=== PATIENT | female | born 2000 | race Caucasian/White ===

== ENCOUNTER 2020-06-04 14:17 | Emergency (ER) | payer MEDICAID, SELFPAY ==
[2020-06-04 14:38] VITALS: BP 133/79; PULSE 80; RESP 16; TEMP 36.2; O2SAT 98; BMI 17.5
--- NOTE | 2020-06-04 15:12 | ED.GENADULT ---
HPI - General Adult General Chief complaint: General Medical Stated complaint: left breast pain Time Seen by Provider: 06/04/20 15:02 Related Data Allergies Allergy/AdvReac Type Severity Reaction Status Date / Time shellfish derived Allergy Swelling Verified 06/04/20 14:51 PMFSH Past Medical History Medical History Costochondritis Social History Social History Smoked in Last 30 Days: No Use of substances other than those prescribed or required for medical reasons: Yes Substance Use Type: Marijuana Advance Directives: No Advance Directives Information Provided: Yes Physical Exam Vital Signs and I&O and Narrative: Vital Signs and I&O: Vital Signs Temp 97.1 F 06/04/20 14:38 Pulse 80 06/04/20 14:38 Resp 16 06/04/20 14:38 BP 133/79 06/04/20 14:38 Pulse Ox 98 06/04/20 14:38 Intake & Output 06/03/20 06/04/20 06/04/20 18:59 06:59 18:59 Weight 45 kg Body Mass Index 17.5 Discharge Plan Discharge Clinical Impression: Benign breast cyst in female Qualifiers: Laterality: left Qualified Code(s): N60.02 - Solitary cyst of left breast Patient Disposition: Home, Self-Care Instructions: Cyst (ED) Additional Instructions: [facility] [phone] Heat to the area Motrin or tylenol for pain as needed Referrals: Ansley Doyle MD [Primary Care Provider] - 5 days Stand Alone Forms: Work/School Release
--- NOTE | 2020-06-04 15:12 | ED.GENADULT ---
HPI - General Adult General Chief complaint: General Medical Stated complaint: left breast pain Time Seen by Provider: 06/04/20 15:02 Source: patient Mode of arrival: ambulatory Limitations: no limitations History of Present Illness HPI narrative: left breast pain times several days. Seen by gynecology. Told likely cystic and to follow-up in a few weeks with them. Patient tells me she has had persistent pain. No fevers, chills, redness, nipple drainage or discharge. Location: chest ( Left breast) Radiation: non-radiation Severity: mild Quality: sharp Pain Consistency: constant Relieving factors: immobilization Exacerbating factors: movement and other ( palpation) Associated symptoms: denies other symptoms Related Data Allergies Allergy/AdvReac Type Severity Reaction Status Date / Time shellfish derived Allergy Swelling Verified 06/04/20 14:51 Review of Systems Review of Systems: Yes all other systems are reviewed and are negative Constitutional: Constitutional: Reports no additional constitutional complaints, Denies body ache(s), Denies chills, Denies fever(s), Denies headache(s) and Denies weakness Eyes: Eyes: Reports no additional eye complaints and Denies change in vision ENT: Reports system reviewed and no additional complaints, except as documented, Denies dizziness, Denies headache(s), Denies nasal congestion, Denies nasal discharge and Denies neck pain Cardiovascular: Cardiovascular: Reports no additional cardiovascular complaints, Denies chest pain, Denies leg edema and Denies dyspnea Respiratory: Respiratory: Reports no additional respiratory complaints, Denies cough and Denies dyspnea Gastrointestinal: Gastrointestinal: Reports no additional gastrointestinal complaints, Denies abdominal pain, Denies diarrhea, Denies nausea and Denies vomiting Genitourinary: Genitourinary: Reports no additional female genitourinary complaints and Denies urinary incontinence Musculoskeletal: Musculoskeletal: Reports no additional musculoskeletal complaints, Denies back pain, Denies arthralgias, Denies joint swelling, Denies neck pain, Denies numbness and Denies tingling Integumentary/Breasts: Skin/Breast: Reports system reviewed and no additional complaints, except as docu, Denies breast skin changes, Reports breast pain, Denies breast mass, Denies change in breast shape and Denies rash Neurologic: Reports system reviewed and no additional complaints, except as documented, Denies Abnormal speech present, Denies dizziness, Denies headache(s), Denies numbness, Denies tingling and Denies weakness PMF Past Medical History Attestation statement: The following information was validated with the patient. Source: obtained from family and nursing notes reviewed Medical History Costochondritis Social History Social History Smoked in Last 30 Days: No Use of substances other than those prescribed or required for medical reasons: Yes Substance Use Type: Marijuana Advance Directives: No Advance Directives Information Provided: Yes Physical Exam Vital Signs and I&O and Narrative: Vital Signs and I&O: Vital Signs Temp 97.1 F 06/04/20 14:38 Pulse 80 06/04/20 14:38 Resp 16 06/04/20 14:38 BP 133/79 06/04/20 14:38 Pulse Ox 98 06/04/20 14:38 Intake & Output 06/03/20 06/04/20 06/04/20 18:59 06:59 18:59 Weight 45 kg Body Mass Index 17.5 Const: General: cooperative, healthy appearing, comfortable and no acute distress Orientation/consciousness: patient oriented x3 Limitations: no limitations HENMT: Head: Yes normal to inspection Ears: hearing grossly normal bilaterally General nose exam: Normal external nose present Face and sinus: Yes normal facial exam Mouth: Normal oral and palatal mucosa present Throat: Yes posterior oropharynx normal Eyes: General: appearance normal, both eyes and all related structures Pupils: Equal, round and reactive pupils present Neck: Neck: Yes normal visual inspection Chest: Other: Firm, tender lump noted at the breast. No surrounding erythema, discharge or dimpling of the skin. No axillary lymphadenopathy. Chest palpation & inspection: normal inspection of the chest Breast/axilla inspection: normal inspection of the breasts and normal inspection of the axillae Breast/axilla palpation: normal palpation of the breasts ( firm lump noted at the 2 to 3 o'clock position. Areola not involved.), normal palpation of the axillae and no axillary lymphadenopathy Resp: Effort & Inspection: normal respiratory effort Auscultation: clear to auscultation bilaterally Cardio: Rate: regular rate Rhythm: regular rhythm Peripheral pulses: Peripheral pulses 2+ throughout GI: Inspection: Yes normal to inspection Palpation (GI): Soft to palpation and nontender Auscultation: normal bowel sounds Back/Spine/Pelvis: Thoracic/Lumbar Spine: thoracic and lumbar spine normal to inspection Skin: General skin exam: no rashes or lesions noted Neuro: General: patient oriented x3, no focal motor deficits and normal sensation to monofilament Cranial nerves: Yes Equal, round and reactive pupils present Cognition (Neuro): normal cognition Speech: No Abnormal speech present Gait exam (Neuro): Normal gait present Motor exam (neuro): 5/5 motor strength present throughout Extrem: General: Yes normal to inspection Medical Decision Making MDM Narrative Medical decision making narrative: Left-sided breast lump Times several days with no signs or symptoms of breast abscess. More cystic on nature. Tender so less likely malignancy. Discussed close follow-up with Gynecology[facility]. Reviewed worrisome signs and symptoms and when to return to the emergency department. Comfortable with discharge home. Discharge Plan Discharge Clinical Impression: Benign breast cyst in female Qualifiers: Laterality: left Qualified Code(s): N60.02 - Solitary cyst of left breast Patient Disposition: Home, Self-Care Instructions: Cyst (ED) Additional Instructions: [facility] tomorrow [phone] Heat to the area Motrin or tylenol for pain as needed Referrals: Ansley Doyle MD [Primary Care Provider] - 5 days Stand Alone Forms: Work/School Release
== END 2020-06-04 16:43 | disposition home or self-care (01) ==
PROVIDERS: Emergency Provider Emergency Medicine; PCP Family Medicine
DX: N60.02 Solitary cyst of left breast (principal)
CPT/HCPCS: 99283; 99284

== ENCOUNTER 2025-01-22 09:48 | Outpatient (AMB) | payer BC, SELFPAY ==
[2025-01-22 09:55] VITALS: BP 110/70; PULSE 87; TEMP 36.6; O2SAT 100
--- NOTE | 2025-01-22 09:55 | AM.OFFWIN_ITS ---
Intake Vital Signs 01/22/25 09:55 Height 5 ft 3 in BP 110/70 Blood Pressure Location Lt brachial Position Sitting Pulse 87 Pulse Source Pulse Oximeter Temp 97.9 F Temp Source Oral Pulse Oximetry (%) 100 Oxygen Delivery Method Room Air Intake Visit Reasons: PET SITTING Trouble breathing Patient Tobacco Use Status: Never used Tobacco Accompanied by: Self / Same As Patient Allergies shellfish derived Allergy (Verified 01/22/25 09:55) Swelling Do you need a note to return to daycare/school/sports/work: Yes HPI HPI Comments History of Present Illness Details History - The patient is a 24-year-old female pr esenting with acute respiratory distress and coughing. - She experienced a sore throat starting a week ago, which progressed into a cough treated with DayQuil. - Symptoms escalated, leading to difficu lty breathing, severe coughing, change in phlegm color from yellow to du, and pressure sensations in the eyes and ears. - Asthma exacerbation history revealed h ospital visits as well as need for inhalers, breathing treatments, and oral steroids. - She has no inhaler or nebulizer at [facility] and has not been on daily asthma maintenance therapy. - Denied significant congestion, ear preston n, sinus issues, headache, but experienced shakiness, numbness, and felt increased pressure due to intense coughing. - Has had seasonal allergies treated wit h antihistamines. - Lack of a consistent primary care prov ider and no previous pulmonary function assessment. Physical Exam General: Cooperative, healthy appearing, comfortable and no acute distress Orientation/consciousness: Patient oriented x3 Limitations: No limitations Head: Normal to inspection Ears: Hearing grossly normal bilaterally, external ears normal and TM's normal bilaterally Nose: Normal external nose present, Normal nares present and No nasal discharge present Face and sinus: Normal facial exam and Yes sinuses nontender Mouth: Normal oral and palatal mucosa present and moist mucous membranes Throat: Yes tonsils normal, Yes uvula midline. Posterior oropharynx erythema Eyes: Appearance normal, both eyes and all related structures Neck: Normal visual inspection Respiratory: Clear to auscultation bilaterally. Normal respiratory effort, able to speak in complete sentences, Actively coughing, no respiratory distress, not tachypneic, no tripod positioning and no use of accessory muscles Cardiovascular: Regular rate and rhythm. Normal S1 and S2 Skin: No rashes or lesions noted Neuro: Patient oriented x3 Extremities: Normal to inspection and Yes no clubbing, cyanosis or edema PFSH Medical History (Updated 01/22/25 @ 10:09 by Becky Reyes PA-C) Costochondritis Social History (System 06/09/23 @ 12:09 by Becky Dobson) Patient Tobacco Use Status: Never used Tobacco Substance Use Type: Marijuana Review of Systems Const All systems reviewed & are unremarkable except as noted in HPI and below Physical Exam Vital Signs: Last Vital Signs Temp 97.9 F 01/22/25 09:55 Pulse 87 01/22/25 09:55 BP 110/70 01/22/25 09:55 Pulse Ox 100 01/22/25 09:55 Oxygen Delivery Method Room Air 01/22/25 09:55 Office Procedures Nebulizer Treatment Nebulizer Treatment 65103-Mbjryjlkp/MDI RX initial, or Nebulizer Subsequent Treatment Office Meds ipratropium 0.5 mg-albuterol 3 mg (2.5 mg base)/3 mL nebulization soln Performing Provider: Becky Reyes PA-C Performing Location: [facility] Administered by: Becky Reyes PA-C on 01/22/25 10:14 Dose Route Admin Location Dispensed Lot Number Expiration Date [facility] [employer] 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 The patient's treatment plan addressed the acute asthma exacerbation and possible bacterial infection. A nebulizer treatment was administered in office for immediate relief, and a rescue inhaler was prescribed for worsening symptoms. A Z-Parish was prescribed as it may offer additional benefits owing to its anti-inflammatory property, alongside a six-day steroid taper for inflammation. The patient was encouraged to inquire about long-term asthma management for which a maintenance inhaler could be beneficial. Recommendations included taking doses in the morning to prevent sleep issues and ensuring rest. Prescription information was sent to a local pharmacy for completion. Patient was informed and verbally consented to the use of an ambient scribe for clinic note documentation during this visit (2) Asthma exacerbation, mild: Code(s): J45.901 - Unspecified asthma with (acute) exacerbation Plan: as above Orders: Orders AMB Nebulizer Treatment Today J22 - Unspecified acute lower respiratory infection, J45.901 - Unspecified asthma with (acute) exacerbation Medications: New methylprednisolone PO PER PKG DIR for 6 days 21 ea 0RF albuterol sulfate 90 mcg/actuation 2 puffs inhalation Q6H PRN 8.5 grams 0RF shortness of breath or wheezing or cough azithromycin For 250 mg dose pack: take 500 mg today (day 1), then 250 mg for 4 days (days 2-5) PO 6 tabs 0RF Coding Level of Care Code Est Pt Level 4 (32907) Diagnoses Lower respiratory infection (e.g., bronchitis, pneumonia, pneumonitis, pulmonitis) J22 Asthma exacerbation, mild J45.901 CPT Codes Nebulizer Treatment - Nebulizer Treatment, initial or subsequent: 69837- Nebulizer/MDI RX initial, or Nebulizer Subsequent Treatment ([id number])
--- OUTSIDE RECORDS SUMMARY | 2025-01-22 10:24 | XMS_ITS | Data Portability ---
Author Organization [facility], [address] Address [address] [place] [address] Assessment No assessment recorded. Plan of Treatment Reminders Order Date Submit Date Provider Last Modified By Organization Details Last Modified Time Details Appointments None recorded. Lab rapid flu (A+B) 2023 024 [email or web address] 20999[facility], [address] [place] [address], [phone], 4 14:02:39 SARS CoV 2 (COVID-19) Ag, QL, IA, upper respiratory specimen 2023 024 [email or web address] _[facility], [address] [place] [address], [phone], 4 14:02:49 Referral None recorded. Procedures None recorded. Surgeries None recorded. Imaging None recorded. Medication Orders None recorded. Patient TargetsNo targets recorded. Patient Instructions Encounter Date Encounter Id Patient Instructions Last Modified By Organization Details Last Modified Time 10/13/2023 [id number] Come into the Urgent Care tomorrow for Covid and Flu testing - for guidance on additional treatment strategies. [email or web address] Not available 10/13/2023 17:46:12 10/14/2023 [id number] upper respirator y infection (cold): care instructions [email or web address] Not available 10/14/2023 13:54:10 Reason for Referral None Reported. Results Created Date Observation Date Name Description Value Unit Range Abnormal Flag Note LastModifiedBy Organization Detail LastModifiedTime 10/14/19 24 10/14/2023 SARS CoV 2 (COVI D-19) Ag, QL, IA, upper respi rator y speci men Unknown Analyte negati ve Not Available _adryan linton [address] [place], [address], 10/14/2023 13:40:50 10/14/19 24 10/14/2023 SARS CoV 2 (COVI D-19) Ag, QL, IA, upper respi rator y speci men Unknown Analyte yes Not Available 2099_ radha [address] [place], [address], 10/14/2023 13:40:50 10/14/19 24 10/14/2023 rapid flu (A+B) Unknown Analyte negati ve Not Available adryan [address] [place], [address], 10/14/2023 13:40:49 10/14/19 24 10/14/2023 rapid flu (A+B) Unknown Analyte negati ve Not Available [facility] [address] [place], [address], 10/14/2023 13:40:49 10/14/19 24 10/14/2023 rapid flu (A+B) Unknown Analyte yes Not Available [address] [place] [address] [place], [address], 10/14/2023 13:40:49 Result Notes None recorded. Problems No Known Problems Procedures Surgical History Date Name Laterality Status Provider Name and Address Organization Details Recorded Time 4 Virtual Visit completed SO HOLLOWAY MD [address] [place] [address] [place], [address], [place] - [facility] 10/13/2023 17:39:35 Imaging Results None recorded. Procedure Notes None recorded. Medical Equipment None Reported. Vitals Date Recorded Body temperature Oxygen saturation Oxygen saturation in Arterial blood by Pulse oximetry Heart rate Body height Body mass index (BMI) Body weight Systolic And Diastolic Provider Name and Address Organization Details Last Updated DateTime 4 99.5 [degF] 100 % 100 % 91 /min 162.56 cm 18.9 kg/m2 47635.1 6 g 115/75 mm[Hg] SHIRA Batista , [place], [address], [place] - [facility] 4 13:36:49 Social History None recorded. Functional Status None recorded. Mental Status None recorded. Family History Nothing Reported. Medical History No medical history recorded. Gynecological History Statement/Question Response Is there any chance of ? No Obstetrics History GPAL:G 0 P 0 0 0 0 Immunizations Vaccine Type Date Status Note Provider Nam e and Address Organization Details Recorded Time COVID-19, mRNA, LNP-S, PF, 30 mcg/0.3 mL dose 1 completed SHIRA Batista, [place], [address], [place] - [facility] 10/14/2023 13:37:24 COVID-19, mRNA, LNP-S, PF, 30 mcg/0.3 mL dose 1 completed SHIRA Batista, [place], [address], [place] - [facility] 10/14/2023 13:37:24 Td (adult), 2 Lf tetanus toxoid, preservative free, adsorbed 2 completed SHIRA Batista, [place], [address], [place] - [facility] 10/14/2023 13:37:24 meningococcal MCV4P 5 completed SHIRA Batista, [place], [address], [place] - [facility] 10/14/2023 13:37:24 Influenza, split virus, quadrivalent, PF 9 completed SHIRA Batista, [place], [address], [place] - [facility] 10/14/2023 13:37:24 Influenza, split virus, quadrivalent, PF 5 completed SHIRA Batista [address] [place], [address], [place] - [facility] 10/14/2023 13:37:24 Influenza, split virus, quadrivalent, PF 6 completed SHIRA Batista [address] [place], [address], [place] - [facility] 10/14/2023 13:37:24 Past Encounters Encounter ID Performer Location Encounter Start Date Encounter Closed Date Diagnosis/Indication Diagnosis SNOMED-CT Code Diagnosis ICD10 Code Diagnosis Note [id number] [facility] [address] [place] [phone] 08/23/2020 18:25:49 08/23/2020 20:00:46 [id number] [facility] [address] [place] [address] 06/16/2022 18:41:59 06/16/2022 20:28:44 [id number] [facility] [address] [place] [address] 06/27/2022 18:13:50 06/27/2022 19:31:37 [id number] [facility] [address] [place] [id number] 04/29/2018 14:52:25 04/29/2018 15:48:34 [id number] [place] [address] [address] [place] [address] 10/13/2023 17:15:36 10/13/2023 18:02:06 Viral upper respiratory tract infection 767016897 J06.9 CoughBlack Elderberry Syrup:1-2 tsp 2-3 times a day for 5 days as needed for coughing.S ambucol Black Elderberry Original Syrup (available at [employer] )Dee Herbs Black Elderberry Syrup, 5.4-Ounce Bottle (available at [employer] or [employer]) Use a cool mist humidifier in the room that you sleep to add moisture to the air, which should soothe the airways and help loosen any mucus that may be present. Sore throatClea r liquids for comfortFre sh Sridhar Root Tea-Cut up fresh sridhar root and boil it till fragrant. drink the liquid as a tea. Can add Honey to taste. Also For Sore Throat:Thr oat Comfort Tea (by [employer])Thro at Coat Tea ( by [employer] ) Clear broth soup: Vegetable, Chicken or Beef as tolerated. Salt Water GarglesMix 1 teaspoonfu l of salt in a glass of warm water. Gargle and spit out the salt water mixture one mouthful at a time until the glass is empty. Repeat 4 times daily. [id number] SHIRA Batista [address] [address] [address] 10/14/2023 13:24:57 10/14/2023 14:05:34 Upper respiratory infection 66151598 J06.9 Patient presented with symptoms of upper respirator y infection. Advised to drink plenty of fluids, run a cool-mist humidifier in room at night, gargle salt water for sore throat, and get plenty of rest. Patient should avoid over-exert ion and reduce exposure to irritants such as smoke, cold, dry air, and dust.Treat ment currently involves symptomati c relief. Nasal sprays like nasonex and flonase (or generic) as well as neti pot to help clear sinuses Patient may take acetaminop hen or ibuprofen as directed to reduce fever and body aches.Anti histamine and decongesta nt usage was discussed and recommenda tions made.Felisa bennett understood these instructio ns and will follow up in the office in 10 days to 2 weeks if symptoms not improving. ER if any shortness of breath/reggie st pain or worsening. Thank you for using [employer] today, please feel free to contact our office if you have any questions or concerns. Health Concerns Section Related Observation LastModified by Organization Detai ls LastModified Time None Recorded Concern Status LastModified by Organization Details LastModified Time None Recorded Advance Directives Directive None Recorded Payers Insurance Date Sequence Insurance Name Policy Number Policy Zamorano Covered Member ID Zamorano Member ID Guarantor Name 10/13/2023 1 [place] [id number] Jennie Liu [id number] Jennie Liu 10/13/2023 1 [place] DOS PRIOR TO 2022 - LOCATED WITHIN [facility] (MEDICAID) Jennie Liu [id number] Jennie Liu Notes Date Note Type Note Provider Name and Address Organization Details Recorded Time 10/13/2023 text/html 23 yo female wit h a 4 day hx of chills, sore throat, stuffy nose, and am sweats, Known sick contacts = Grandmother had a sever cold last week. Pt denies n/v/d/rash/headach e/earache/abdomena l pain, or other sxs. SO HOLLOWAY MD [address] [place], [address], [place] - [facility] 10/13/2023 17:46:51 10/14/2023 text/html 23 y/o female wi th 5 days of cough, congestion, fevers, fatigue.Taking OTC meds with some relief. Lives with grandparents, they have also been ill. SHIRA Batista [address] [place], [address], [place] - [facility] 10/14/2023 14:03:07 OBGyn Episode No OBEpisode recorded.
== END 2025-01-22 10:30 | disposition home or self-care (01) ==
PROVIDERS: PCP Family Medicine; Visit Provider Physician Assistant
DX: J22 Unspecified acute lower respiratory infection (principal); J45.901 Unspecified asthma with (acute) exacerbation

== ENCOUNTER → 2025-01-22 09:48 | Outpatient (BNVA) | payer BC, SELFPAY | PROVIDERS: PCP Family Medicine; Visit Provider Physician Assistant | DX: J22 Unspecified acute lower respiratory infection (principal); J45.901 Unspecified asthma with (acute) exacerbation | CPT/HCPCS: 94640 ==

== ENCOUNTER 2025-06-04 15:48 | Outpatient (AMB) | payer BC, SELFPAY ==
[2025-06-04 15:50] VITALS: BP 112/62; PULSE 90; TEMP 36.8; O2SAT 99; BMI 19.3
--- NOTE | 2025-06-04 15:50 | MHC.OFFWIV ---
Intake Vital Signs 06/04/25 15:50 Height 5 ft 3 in Weight 109 lb BMI 19.3 BP 112/62 Blood Pressure Location Lt brachial Position Sitting Pulse 90 Pulse Source Pulse Oximeter Temp 98.3 F Temp Source Oral Pulse Oximetry (%) 99 Oxygen Delivery Method Room Air Intake Visit Reasons: ep possible upper respiratory infection Intake Note: pt presents with sinus congestion, head pressure, throat pain Patient Tobacco Use Status: Never used Tobacco Allergies shellfish derived Allergy (Verified 06/04/25 15:54) Swelling Do you need a note to return to daycare/school/sports/work: Yes HPI HPI Comments History of Present Illness Details History - The patient is a 25-year-old female presenting with flu-like symptoms, including congestion, cough, and headache, without fever for a few days. - Symptoms began recently, with the patient waking up in a pool of sweat and feeling unwell. - She has taken DayQuil without improvement. - Reports mild shortness of breath upon exertion, particularly when moving around outside the house. - No official diagnosis of asthma, but previous similar episodes have occurred. Does not have a PCP. - The patient is prone to sinus and chest issues, with exacerbations following colds. - No primary care physician currently, but plans to establish care with a new provider. - Sinus pain reported, with facial, nasal, and ocular discomfort. - Self-administered facial massage provided slight relief. Physical Exam General: Cooperative, healthy appearing, comfortable and no acute distress Orientation/consciousness: Patient oriented x3 Limitations: No limitations Head: Normal to inspection Ears: Hearing grossly normal bilaterally, external ears normal and TM's normal bilaterally Nose: Normal external nose present, Normal nares present and No nasal discharge present Face and sinus: Normal facial exam and Sinuses tender, especially in the maxillary area Mouth: Normal oral and palatal mucosa present and moist mucous membranes Throat: Yes tonsils normal, Yes uvula midline. Posterior oropharynx erythema, no exudates Eyes: Appearance normal, both eyes and all related structures Neck: Normal visual inspection, full ROM Respiratory: Clear to auscultation bilaterally. Normal respiratory effort, able to speak in complete sentences, Actively coughing, no respiratory distress, not tachypneic, no tripod positioning and no use of accessory muscles Cardiovascular: Regular rate and rhythm. Normal S1 and S2 Skin: No rashes or lesions noted Neuro: Patient oriented x3 Extremities: Normal to inspection and Yes no clubbing, cyanosis or edema Review of Systems - General: Reports flu-like symptoms without fever - Respiratory: Reports congestion and cough, mild dyspnea on exertion - ENT: Reports headache, facial pain, nasal congestion, and ocular discomfort All systems reviewed and are unremarkable except as noted in [facility]PI [facility] Costochondritis Social History Patient Tobacco Use Status: Never used Tobacco Substance Use Type: Marijuana Physical Exam Vital Signs: Last Vital Signs Temp 98.3 F 06/04/25 15:50 Pulse 90 06/04/25 15:50 BP 112/62 06/04/25 15:50 Pulse Ox 99 06/04/25 15:50 Oxygen Delivery Method Room Air 06/04/25 15:50 BMI result Body Mass Index 19.3 Assessment & Plan Assessment & Plan (1) Sinusitis, acute: Code(s): J01.90 - Acute sinusitis, unspecified Qualifiers: Sinusitis location: maxillary Recurrence: non-recurrent Qualified Code(s): J01.00 - Acute maxillary sinusitis, unspecified Plan: Plan Patient was informed and verbally consented to the use of an ambient scribe for clinic note documentation during this visit. 1. Upper Respiratory Tract Infection - VSS, pt well appearing and PE remarkable for sinus tenderness - Rapid strep negative - Prescribed a Solumedrol Dosepak for sinus inflammation and symptom relief. - Recommended [id number] Sudafed for congestion relief. - Advised to continue using albuterol inhaler as needed for dyspnea. - Viral panel test conducted to identify specific viral infection. 2. Possible Mild Asthma Exacerbation - Suggested obtaining PCP, gave info, to get pulmonary function testing for asthma diagnosis and management. Has albuterol inhaler to use PRN, no wheezing on auscultation and O2 sat WNL Orders: Orders Resp Pathogen Panel - [facility] Today J06.9 - Acute upper respiratory infection, unspecified Medications: New methylprednisolone PO PER PKG DIR for 6 days 21 ea 0RF benzonatate 200 mg PO BEDTIME PRN 10 caps 0RF cough Coding Level of Care Code New Pt Level 3 (00659) Diagnoses Acute non-recurrent maxillary sinusitis J01.00 Sinusitis location: maxillary Recurrence: non-recurrent
--- OUTSIDE RECORDS SUMMARY | 2025-06-04 18:45 | XMS_ITS | Encounter Summary ---
Author Organization [facility] Address [address] [facility] [address] [place] [id number] Phone Care Team Providers Care Plant Guard Name Role Phone Ansley Doyle MD Primary Care Provider [phone] Ansley Doyle MD Unavailable [phone] Unknown, Unknown Primary Care Provider Ariadne evans Encounter Details Date Type Department Care Team (Late st Contact Info) Description 03/18/2022 Procedure Pass [facility], [facility] [address] [place] [address] Social History Tobacco Use Types Packs/Day Years Used Date Smoking Tobacco: Never Smokeless Tobacco: Never Alcohol Use Standard Drinks/Week Comments Yes 0 (1 standard drink = 0.6 oz pur e alcohol) Child or Family Care Answer Date Record ed Do you have problems with on e of the following making it difficult for you to work, study, or receive health care? No 03/18/2022 Education Answer Date Recorded Are you interested in help w ith more adult education (for example, completing high school, GED, job training, learning the [place] language, technical skills, or developing parenting skills)? Yes 03/18/2022 Food Answer Date Recorded Within the past 6 months we worried whether our food would run out before we got money to buy more. Never True 03/18/2022 Within the past 6 months the food we bought just didn't last and we didn't have enough money to get more. Never True Residential Stability Answer Date Recor ded What is your housing situation today? I have garret sing 03/18/2022 How many times have you move d in the past 12 months? Zero (I did not move) 03/18/2022 Paying for Meds Answer Date Recorded Do you have trouble paying for medicines? No 03/18/2022 Paying Utility Bills Answer Date Record ed Do you have trouble paying y our heating or electricity bill? I choose not to answer 03/18/2022 Transportation Answer Date Recorded Has the lack of transportati on kept you from medical appointments or from getting medications? No 03/18/2022 Unemployment Answer Date Recorded Are you currently unemployed or working on a part-time or temporary basis, and looking for work? No 03/18/2022 Comments No Sex and Gender Information Value Date Recorded Sex Assigned at Female 06/19/2019 12:32 PM EDT Legal Sex Female 2:30 PM EST Gender Identity Female 06/19/2019 12:32 PM EDT Sexual Orientation Bisexual 10/22/2019 12 :52 AM EST Occupation Industry Job Start Date Job End Date [employer] Not on file Not on file Not on file documented as of this encounter Plan of Treatment Not on file documented as of this encounter Visit Diagnoses Not on filedocumented in this encounter Additional Health Concerns Assessment Noted Time PHQ-2 Depression Total Score: 0 03/18/20 22 1:39 PM EDT documented as of this encounter Care Teams Plant Guard Relationship Specialty Start Date End Date Ansley Doyle MD [email or web address] PCP - General Family Medicine 07/23/19 12/01/23 Unknown, Unknown, PCP - General 12/02/23 Ansley Doyle MD [address] [place] [address] [email or web address] Insurance Assigned Provider 08/04/19 documented as of this encounter Additional Source Comments The information contained in this document represents components of the legal health record. It is not the complete legal health record.[facility]
--- OUTSIDE RECORDS SUMMARY | 2025-06-04 18:45 | XMS_ITS | Clinical Summary ---
Author Organization [facility] Address [address] [address] Phone Care Team Providers Care Cupola Man Name Role Phone Unknown, Unknown Primary Care Provider Ariadne evans Allergies Active Allergy Reactions Criticality Noted Date Comments Shellfish Containing Products Shortness Of Breath High 11/16/2017 Medications PROAIR HFA 90 mcg/actuation inhaler INHALE 2 PUFFS BY MOUTH FOUR TIMES DAILY NEEDED FOR WHEEZING 1 Active cholecalciferol (VITAMIN D3) 5,000 unit capsuleIndications :Vitamin D insufficiency Take 1 capsule (5,000 Units total) by mouth daily. 90 capsule 1 2 Active levonorgestrel and ethinyl estradiol (LOSEASONIQUE) 0.1-0.02 mg (84) 0.10 mg (7) oral 3MPkIndications:Br eakthrough bleeding on control pills Take 1 tablet by mouth daily. 84 tablet 4 3 Active Active Problems Problem Noted Date Diagnosed Date Concussion 03/18/2022 ARTURO positive 02/24/2022 Assessment & Plan (03/09/2022 10:46 PM EDT): I have explained to Fidelina that low positive ARTURO in itself does not make any diagnoses however puts her at an increased risk for developing any systemic rheumatic diseases associated with positive ARTURO such as systemic lupus erythematosus, Sjogren's syndrome, mixed connective tissue disease, scleroderma, polymyositis, dermatomyositis, vasculitis etc. at some point in the future. Due to diffuse arthralgias myalgias, dryness in her eyes and mouth I took the liberty of additional tests to make sure that there are no immunologic abnormalities requiring further follow-up. Other headache syndrome 02/24/2022 Assessment & Plan (03/09/2022 10:49 PM EDT): Proper hydration, daily relaxation/meditation, sleep hygiene. Keep diary of headaches and modifiers to look for patterns and discussed with PCP for further management strategies Family history of stroke 02/24/2022 Assessment & Plan (03/09/2022 10:51 PM EDT): Couple of additional tests requested to make sure that she does not have any genetic proclivity for early stroke herself. Pelvic cramping 05/12/2021 Assessment & Plan (05/12/2021 3:48 PM EDT): Cramping likely assoc with bleeding. Pelvic exam is otherwise normal. Suggested 600 mg ibuprofen twice daily-3 times daily as needed cramping. Follow-up as needed if symptoms not resolving with resolution of bleeding. GC chlamydia culture taken. Arthralgia of multiple sites 02/20/2020 Assessment & Plan (02/20/2020 7:39 PM EDT): Joint protection, energy conservation. Gentle, regular exercise routine. Avoid falls, injuries, overuse. Keep body weight in ideal range for her height. She may benefit from topical cream such as Arnica, Biofreeze, Aspercreme versus medicated patches such as salonpas, icy hot patch 2-3 times daily and if necessary at bedtime x 3 weeks. Vitamin D insufficiency 02/20/2020 Assessment & Plan (03/09/2022 10:47 PM EDT): Continue daily vitamin D 5000 units to bring serum level into optimal range: 40- 45 ng/ml. Assessment & Plan (02/20/2020 7:34 PM EDT): Recently discovered-started on weekly vitamin D 50,000 units about 2 months ago. Continue to get serum level into sufficient range: 40-45ng/ml. History of UTI 02/20/2020 Assessment & Plan (03/09/2022 10:50 PM EDT): Proper hydration: 6-8 glasses (8 ounces each) of fluids daily. Diligent personal hygiene. Continue drinking cranberry juice 0.5-1 glass daily or taking cranberry pill. Assessment & Plan (02/20/2020 7:37 PM EDT): Keep well-hydrated: 6-8 glasses (8 ounces each) of fluids daily. Diligent personal hygiene Continue drinking cranberry juice 0.5-1 glass daily or taking cranberry pill. Anxiety 02/20/2020 Assessment & Plan (02/20/2020 7:38 PM EDT): Chronic and ongoing with periodic exacerbation. I have encouraged her to carefully try a low-dose of Cymbalta and continue with regular personal psychotherapy sessions to optimize stress management strategies. Dry eye 02/20/2020 Assessment & Plan (03/09/2022 10:48 PM EDT): Keep well-hydrated. Avoid spicy and acidic foods. Diligent eyes and mouth hygiene. Regular ocular and dental checkups. Assessment & Plan (02/20/2020 7:35 PM EDT): Continue regular eyedrops and gel as needed. 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 History of alcohol abuse 02/20/2020 Assessment & Plan (02/20/2020 7:50 PM EDT): Occurred daily in a binge fashion throughout the 2015 and most of 2017 calendar year: At the age of 16 and 17. Very vulnerable time for brain and bone development. Hematoma 01/02/2020 Assessment & Plan (01/02/2020 2:10 PM EDT): A virtual visit was used during the COVID-[address] of an in-person visit. This real-time interactive virtual clinical encounter was conducted using telephone-only technology from clinic or home office. Consent for virtual care, including informing the patient that insurance will be billed, and that in- person care is available in case of emergencies or as needed otherwise, was discussed at the time of scheduling. I spent 10 minutes on the phone today with Fidelina. I reviewed the pictures that she sent in on the [facility] and this appears to be a superficial hematoma of the right leg just distal to the knee-lateral aspect. It is smaller than the size of a dime. I advised her to put warm compresses to the site a few times a day and to take some Tylenol as needed. I advised her to call if this gets worse-more painful or bigger. She understands and agrees with this plan. History of multiple concussions 07/23/2019 Assessment & Plan (02/20/2020 7:45 PM EDT): Due to sustaining 3 concussions within the 1-2 years at the age of 11 and 12 that required withdrawal from the school for at least a month at a time and subsequent cessation of sport participation it is possible that she developed post-concussion syndrome. Weight loss 11/22/2017 Assessment & Plan (02/20/2020 7:29 PM EDT): Ongoing intermittently for several years despite good appetite. Possibly contributed by a recent bout of salmonella gastroenteritis and E. coli UTI. Assessment & Plan (11/22/2017 2:13 PM EDT): The patient says she went from 130 lbs last summer to 91 lbs more recently and is now at 100 lbs which she is trying to stay at. I recommended that if weight loss continues to be an issue for her, she should discuss this with her medical doctor and consider a workup for this. Allergy to shellfish 11/22/2017 Assessment & Plan (11/22/2017 2:15 PM EDT): The patient says she gets throat swelling with shellfish. We discussed the seriousness of this type of allergy and the potential need for medical treatment if it happens again. Mass of left breast 11/16/2017 Assessment & Plan (07/02/2020 11:01 AM EST): Prominence of glandular tissue in RUOQ. Patient with dense glandular tissue bilaterally. Patient had left breast ultrasound imaging at [facility]. Report reviewed-normal. Encourage patient to refrain from daily breast exams. Suggested she monitor her symptoms. It is possible that the continuous use OCP/estrogen is contributing to her breast density and discomfort. Alternative contraceptive options reviewed. May consider levonorgestrel IUD. Assessment & Plan (11/23/2017 9:11 AM EDT): Negative left breast u/s, had follow up visit with Dr. Stephenson. Biopsy discussed but reassured likely benign finding and repeat exam in 3 mos planned per patient Assessment & Plan (11/22/2017 2:16 PM EDT): On exam the patient does have a breast mass or density in the upper outer quadrant of the left breast that she says is painful. I have offered core needle biopsy versus excisional biopsy versus 3-month follow-up. She opts for three-month follow-up. We discussed ways of helping to reduce breast pain with the elimination of caffeine, red wine and dark chocolate, as well as consideration of using low dose vitamin E or primrose oil. Assessment & Plan (11/16/2017 11:52 AM EDT): Discussed likely cyst or fibroadenoma, recommended imaging and folllow up with surgeon. Patient agreeable to same. History of suicide attempt 09/07/2017 Resolved Problems Problem Noted Date Diagnosed Date Resolved Date Breakthrough bleeding on control pills 1 11/17/2022 Assessment & Plan (05/12/2021 3:47 PM EDT): Likely bleeding patient is experiencing is due to BTB with low-dose 20 MCG continuous use pill. I have suggested monitoring bleeding since the bleeding appears to be nearly resolved. Reassured patient that the bumps she feels on her cervix are normal small pinpoint glands. If BTB continues patient may discontinue pills for 1 week and then resume use. May also call for follow-up care/prn if sx not resolving. Vaginal discharge 07/02/2020 11/17/2022 Assessment & Plan (07/02/2020 10:45 AM EST): Discharge on exam appears physiologic. Patient is asymptomatic. Reassured patient of negative microscopy. Informed patient it would be unlikely that she has transmitting yeast infection to partner. If he continues to have irritation of the foreskin he should follow-up with his physician. ARTURO positive 02/20/2020 03/09/2022 Assessment & Plan (02/20/2020 7:27 PM EDT): I have explained to Fidelina that low positive ARTURO in itself does not make any diagnoses however puts her at an increased risk for developing any systemic rheumatic diseases associated with positive ARTURO such as systemic lupus erythematosus, Sjogren's syndrome, mixed connective tissue disease, scleroderma, polymyositis, dermatomyositis, vasculitis etc. at some point in the future. Due to diffuse arthralgias myalgias, dryness in her eyes and mouth I took the liberty of additional tests to make sure that there are no immunologic abnormalities requiring further follow-up. Acute cystitis without hematuria 01/02/2020 11/17/2022 Assessment & Plan (01/02/2020 2:09 PM EDT): Fidelina was seen in the emergency room yesterday and diagnosed with urinary tract infection. She informs me that she did not send the prescription into her pharmacy yet but is asked me to write another prescription to be sent to her pharmacy. I did this today- Macrobid. She will take this as directed. She will call if there is any other issues. Suicide attempt 07/23/2019 03/18/2022 Overview (07/23/2019): [facility] Administration Dates Next Due COVID-19 (Pre-06/20) Pfizer Vaccine, mRNA, PF 05/09/2021 DTP 1998,1998,1998 Dtap, 5 Pertussis Antigens 05/23/2002,09/30/2000 HPV,quadrivalent 04/18/2013,03/28/2012, 1 Hepatitis A, ped/adol, 2 dose 12/12/2013, 011 Hepatitis B 1998,1998,1998 Hib,PRP-T 10/14/1999, 9,1998,09/17,1998 INFLUENZA, SPLIT VIRUS, TRIV ALENT W/ PRESERVATIVE IM 07/04/2007 IPV 05/23/2002 Influenza Quadrivalent Intranasal 06/05/2014 Influenza Quadrivalent Prese rvative Free IM 09/08/2018,07/12/2016,05/20/2015,06/13 Influenza Split (Incl. Purif ied Surface Antigen) 09/11/2012 Influenza quadrivalent nasal 08/10/2010 MMR 05/23/2002,09/30/2000 Meningococcal MCV4P 08/07/2015,06/05/2014,2010 Polio - OPV 07/03/1999,1998,1998 Td (adult),2 Lf Tetanus Toxo id, PF, Adsorbed 01/19/2022 Tdap 03/26/2011 Varicella 01/16/2009,07/03/1999 Family History Medical History Relation Comments Juvenile idiopathic arthritis Brother 1 Osteoarthritis Brother 1 Congenital heart disease Father Heart murmur Father Irregular heart beat Maternal Grandfather Deep vein thrombosis Mother Fibromyalgia Mother Heart defect Mother born with hole i n heart Stroke Mother Vitamin B12 deficiency Mother MTHFR mut ation Cancer Paternal Grandfather Lung cancer Paternal Grandmother smoker Relation Status Comments Brother 1 Alive Brother 2 Alive Brother 3 Alive Father Alive Maternal Grandfather Alive Maternal Grandmother Alive Mother Alive Paternal Grandfather Paternal Grandmother Social History Tobacco Use Types Packs/Day Years [...] Answer Date Recorded Are you interested in more education? Not on daphney e 03/27/2024 Are you concerned about learning? Not on file 03/27/2024 No 03/27/2024 No 03/27/2024 Food Answer Date Recorded Within the past [...] your housing situation today? I have garret alfaro 03/18/2022 How many times have you move [...] basis, and looking for work? No 03/18/2022 Digital Access Answer Date Recorded No 01/22/2023 No 01/22/2023 No 01/22/2023 Reliable internet access at home? Not on file 01/22/2023 Device with a working camera? Not on file Comments No Sex and Gender Information Value Date Recorded Sex Assigned at Female 06/19/2019 12:32 PM EDT Legal Sex Female 2:30 PM EST Gender Identity Female 06/19/2019 12:32 PM EDT Sexual Orientation Bisexual 10/22/2019 12 :52 AM EST Occupation Industry Job Start Date Job End Date [employer] Not on file Not on file Not on file Last Filed Vital Signs Vital Sign Reading Time Taken Comments Blood Pressure 112/74 11/17/2022 3:21 PM EDT Pulse 94 01/19/2022 8:04 AM EDT Temperature 36.5 C (97.7 F) 01/19/2022 8:04 AM EDT Respiratory Rate 18 03/09/2021 3:31 PM EDT Oxygen Saturation 98% 01/19/2022 8:04 AM EDT Inhaled Oxygen Concentration - - Weight 50.3 kg (111 lb) 11/17/2022 3:21 PM EDT Height 161.3 cm (5' 3.5 ) 11/17/2022 3:21 PM EDT Body Mass Index 19.35 11/17/2022 3:21 PM EDT Plan of Treatment Health Maintenance Due Date Last Done Comments DEPRESSION SCREENING 03/18/2023 03/18/2022 SMOKING STATUS SCREENING (Once After 26 Yrs) 2024 INFLUENZA VACCINE (#1) 2025 9, 07/12/2016, 05/20/2015, Additional history exists COVID-19 VACCINE ( season) 2025 05/30/2021, 05/09/2021 PAP SMEAR 11/17/2025 11/17/2022, 03/29, 04/14/2020 Adult Td,Tdap Booster 01/20/2032 01/19/2022, 011 HIB VACCINES Completed 10/14/1999, 12/1998, 1998, Additional history exists HEPATITIS A VACCINES Completed 12/12/2013, 03/26/20 11 MENINGOCOCCAL VACCINES (ACWY) Completed 08/07/2015, 06/05/2014, 03/26/2011 HEPATITIS C SCREENING Completed 05/14/2020 , 05/14/2020, 09/15/2017 HIV ONE-TIME SCREENING (18-65 YEARS) Completed 05/14/2020, 09/15/2017 MENINGOCOCCAL VACCINES (B) Aged Out N o longer eligible based on patient's age to complete this topic PNEUMOCOCCAL VACCINES (0-49 years) Aged Out No longer eligible based on patient's age to complete this topic Medical Devices Not on file Procedures Procedure Name Priority Date/Time Associated Diagnosis Comments PAP TEST Routine 11/17/2022 12:00 AM EDT HEPATITIS C ANTIBODY, QUALITATIVE Routine 05/14/2020 1:37 PM EDT Routine screening for STI (sexually transmitted infection) OUTSIDE HIV Routine 09/15/2017 from Last 3 Months or Most Recently Relevant to Health Maintenance Results * Pap Test (11/17/2022 12:00 AM EDT) 11/17/2022 11/18/2022 10: 45 AM EDT Narrative SEE NARRATIVE - 11/23/2022 9:50 AM EDT [address] [address] Plaster Patternmaker: Amber Naranjo MD [employer] Cytology Report FINAL DIAGNOSIS A. PAP SMEAR (SUREPATH) CE: SPECIMEN ADEQUACY: Satisfactory for evaluation; transformation zone absent/insufficient. INTERPRETATION: NEGATIVE FOR INTRAEPITHELIAL LESION OR MALIGNANCY. Electronically Signed Out By: LIZBETH Donovan(ASCP) The Pap test is a screening test primarily for squamous cancers and precursors and has associated false-negative and false-positive results. New technologies such as liquid-based preparations may decrease but will not eliminate all false-negative results. Regular sampling and follow-up of unexplained clinical signs and symptoms are recommended to minimize false negative results. CLINICAL HISTORY Date of Last Menstrual Period: Not Provided Menstrual History: Unknown Contraceptive History: BCPs Other Clinical Conditions: Screening Pap SPECIMEN SOURCE A: PAP SMEAR (SUREPATH) CE Patient Name: FIDELINA ANDRADE : 2000 (Age: 22) Sex: F Institution: [facility] Location: [facility] [place] Date of Collection: 11/17/2022 Date of Reported: 11/23/2022 09:50 Results to: Lauryn Garcia MD Lauryn Garcia MD CYTOLOGY ORDERABLES Final Result Performing Organization Address City/[facility] Co de Phone Number SEE NARRATIVE * Hepatitis C antibody, qualitative (05/14/2020 1:37 PM EDT) HCV NON-REACTIV E NON-REACTI VE [facility] Blood 05/14/2020 1:37 PM EDT 05/14/2020 1:44 PM EDT Trini Simon CNM LAB BLOOD ORDERABLES Final Resu lt Performing Organization Address City/[facility]/ZIP Co de Phone Number [facility] [address] [place] [address] * OUTSIDE HIV TEST (09/15/2017) HIV - External Neg Historical Provider LAB BLOOD ORDERABLES Amy l Result from Last 3 Months or Most Recently Relevant to Health Maintenance Insurance Care Teams Cupola Man Relationship Specialty Start Date End Date Unknown, Unknown, PCP - General 12/02/23 Additional Source Comments The information contained in this document represents components of the legal health record. It is not the complete legal health record.[facility]
--- OUTSIDE RECORDS SUMMARY | 2025-06-04 18:45 | XMS_ITS | Encounter Summary ---
Author Organization [facility] Address [address] [facility] [address] [place] [id number] Phone Care Team Providers Care Fried Cake Maker Name Role Phone Ansley Doyle MD Primary Care Provider [phone] Ansley Doyle MD Unavailable [phone] Unknown, Unknown Primary Care Provider Ariadne evans Encounter Details Date Type Department Care Team (Late st Contact Info) Description 06/24/2020 Procedure [facility], [facility] [address] [place] [address] Social History Tobacco Use Types Packs/Day Years Used Date Smoking Tobacco: Never Smokeless Tobacco: Never Alcohol Use Standard Drinks/Week Comments Yes 0 (1 standard drink = 0.6 oz pur e alcohol) Child or Family Care Answer Date Record ed Do you have problems with on e of the following making it difficult for you to work, study, or receive health care? No 08/13/2019 Education Answer Date Recorded Are you interested in help w ith more adult education (for example, completing high school, GED, job training, learning the Lao language, technical skills, or developing parenting skills)? Yes 08/13/2019 Are you concerned about learning? Not on file 08/13/2019 Not on file 08/13/2019 Not on file 08/13/2019 Food Answer Date Recorded Within the past 6 months we worried whether our food would run out before we got money to buy more. Never True 08/13/2019 Within the past 6 months the food we bought just didn't last and we didn't have enough money to get more. Never True 9 Paying for Meds Answer Date Recorded Do you have trouble paying for medicines? No 08/13/2019 Paying Utility Bills Answer Date Record ed Do you have trouble paying your heating or elect ricity bill? No 08/13/2019 Transportation Answer Date Recorded Has the lack of transportati on kept you from medical appointments or from getting medications? No 08/13/2019 Comments No Sex and Gender Information Value Date Recorded Sex Assigned at Female 06/19/2019 12:32 PM EDT Legal Sex Female 2:30 PM EST Gender Identity Female 06/19/2019 12:32 PM EDT Sexual Orientation Bisexual 10/22/2019 12 :52 AM EST documented as of this encounter Plan of Treatment Not on file documented as of this encounter Visit Diagnoses Not on filedocumented in this encounter Additional Health Concerns Infection Onset Date Last Indicated Resolved Time CoV-Risk 03/09/2021 03/09/2021 03/19/2021 1:42 AM EDT Assessment Noted Time PHQ-2 Depression Total Score: 0 07/23/20 9:15 AM EST documented as of this encounter Care Teams Fried Cake Maker Relationship Specialty Start Date End Date Ansley Doyle MD [email or web address] PCP - General Family Medicine 07/23/19 12/01/23 Unknown, Unknown, MD PCP - General 12/02/23 Ansley Doyle MD [address] [place] [address] [email or web address] Insurance Assigned Provider 08/04/19 documented as of this encounter Additional Source Comments The information contained in this document represents components of the legal health record. It is not the complete legal health record.[facility]
== END 2025-06-04 16:27 | disposition home or self-care (01) ==
PROVIDERS: PCP Family Medicine; Visit Provider Physician Assistant
DX: J01.00 Acute maxillary sinusitis, unspecified (principal); J02.9 Acute pharyngitis, unspecified

== ENCOUNTER 2025-06-04 15:48 | Outpatient (REF) | payer BC, SELFPAY ==
[2025-06-05 14:04] LABS: Chlamydia pneumoniae PCR Not Detected (Not Detect.); Coronavirus 229E PCR Not Detected (Not Detect.); Coronavirus HKU1 PCR Not Detected (Not Detect.); Coronavirus NL63 PCR Not Detected (Not Detect.); Coronavirus OC43 PCR Not Detected (Not Detect.); RSV PCR Not Detected (Not Detect.); Rhino/Enterovirus PCR Detected (Not Detect.)
[2025-06-05 14:44] LABS: SARS-CoV-2 PCR Not Detected (Not Detect.)
[2025-06-05 14:45] LABS: Influenza A H1 PCR Not Detected (Not Detect.); Influenza A H1-2009 PCR Not Detected (Not Detect.); Influenza A H3 PCR Not Detected (Not Detect.)
== END 2025-06-04 15:49 | disposition home or self-care (01) ==
LOC: HO.LAB 15:48
PROVIDERS: Physician Assistant; PCP Family Medicine
DX: J01.00 Acute maxillary sinusitis, unspecified (principal); R05.9 Cough, unspecified; R51.9 Headache, unspecified; R09.81 Nasal congestion
CPT/HCPCS: 87633; 87880

== ENCOUNTER 2025-08-08 10:49 | Outpatient (REF) | payer BC, SELFPAY ==
[2025-08-08 15:05] LABS: Hematocrit 41.3 % (37.0-47.0); Hemoglobin 13.9 g/dl (12.0-16.0); Mean Corpuscular HGB Conc 33.7 g/dl (31.0-35.0); Mean Corpuscular Hemoglobin 28.5 pg (27.0-33.0); Mean Corpuscular Volume 84.6 fL (80.0-98.0); NRBC Abs Auto 0.000 X10*3/uL (0.0-0.012); NRBC Pct Auto 0.0 /100WBC (0.0-0.2); Platelet Count 215 X10*3/uL (160-400); Red Blood Count 4.88 X10*6/uL (4.20-5.50); White Blood Count 6.5 X10*3/uL (4.8-10.8)
[2025-08-08 15:18] LABS: Alanine Aminotransferase 13 U/L (0-31); Albumin Level 5.1 g/dL (3.5-5.0); Alkaline Phosphatase 39 U/L (39-117); Anion Gap 9 (12-20); Aspartate Amino Transferase 22 U/L (5-31); Blood Urea Nitrogen 16 mg/dL (9-16); Calcium 9.7 mg/dL (8.4-10.2); Carbon Dioxide 26 mmol/L (22-29); Chloride 108 mmol/L (96-108); Cholesterol 204 mg/dL (<200); Estimated Glomerular Filt Rate > 60; HDL Cholesterol 66 mg/dL (>40); Iron 43 mcg/dL (30-160); Percent Iron Saturation 15 % (15-50); Potassium 3.7 mmol/L (3.3-5.1); Sodium 139 mmol/L (135-145); Total Iron Binding Capacity 294 mcg/dL (228-428); Total Protein 7.5 g/dL (6.5-8.0); Triglycerides 50 mg/dL (<150); Unsaturated Iron Binding 251 ug/dL
[2025-08-08 15:25] LABS: Microalbum/Creatinine Ratio Ur 10.9 ug/mg cr (<30)
[2025-08-08 15:38] LABS: Ferritin 45 ng/mL (10-122)
[2025-08-08 15:50] LABS: Folate 6.6 ng/mL (> or = 4.0); Vitamin B12 358 pg/mL (200-900)
[2025-08-14 18:03] LABS: MTHFR Mutation Detection POSITIVE
[2025-08-16 15:24] LABS: Anti Nuclear Antibody Screen POSITIVE (NEGATIVE); Anti Nuclear Antibody Titer 1:640 titer
== END 2025-08-08 10:50 | disposition home or self-care (01) ==
LOC: HO.WFDLDS 10:49
PROVIDERS: PCP Nurse Practitioner Family; Visit Provider Nurse Practitioner Family
DX: N92.1 Excessive and frequent menstruation with irregular cycle (principal); R76.89 Other specified abnormal immunological findings in serum; E55.9 Vitamin D deficiency, unspecified; J45.20 Mild intermittent asthma, uncomplicated; Z82.3 Family history of stroke; Z91.013 Allergy to seafood; M94.0 Chondrocostal junction syndrome [Tietze]; Z92.89 Personal history of other medical treatment; Z76.89 Persons encountering health services in other specified circumstances; Z83.49 Family history of other endocrine, nutritional and metabolic diseases
CPT/HCPCS: 36415; 80053; 80061; 81291; 82043; 82306; 82570; 82607; 82728; 82746; 83036; 83540; 84443; 85027; 86038; 86039; 96127

== ENCOUNTER 2025-08-08 10:49 | Outpatient (AMB) | payer BC, SELFPAY ==
[2025-08-08 10:52] VITALS: BP 92/74; PULSE 89; RESP 14; TEMP 36.7; O2SAT 98; BMI 19.4
--- NOTE | 2025-08-08 10:52 | A.OFFPC_ITS ---
Vital Signs 08/08/25 10:52 Height 5 ft 3 in Weight 109 lb 6 oz BMI 19.4 BP 92/74 Blood Pressure Location Rt brachial Position Sitting Respiration 14 Pulse 89 Pulse Source Pulse Oximeter Temp 98.1 F Temp Source Oral Pulse Oximetry (%) 98 Oxygen Delivery Method Room Air Intake Visit Reasons: est care/ requesting CPE [employer] Professor Required: No Allergies shellfish derived Allergy (Verified 08/08/25 11:13) Swelling Medication List - Last Reconciled 08/08/25 by LORENA CavazosP- albuterol sulfate 90 mcg/actuation 2 puffs inhalation Q6H PRN Tobacco use date assessed: 08/08/25 Dental Screening Did you have a dental visit in the last 12 months?: Yes Did you have a dental problem in the last 6 months where you did not have access to dental care?: No Was dental information given to patient?: Patient has dentist HPI HPI Comments History of Present Illness Details 25 y/o F with asthma, + OPAL, Vit D Def, Fhx stroke Fhx: Stroke in Mom and MGM, Mom with MTHFR gene mutation Surgery: None Fhx: Lives alone; 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 No medical records, [place] [facility] [place] Asthma, unspecified: - The patient presents with a history of recurrent respiratory problems and was advised by a walk-in clinic provider to be tested for asthma. - She has never undergone formal pulmona ry function testing. - Her grandmother has a history of sever e asthma. - She reports needing new inhalers frequ ently from the walk-in clinic. Positive antinuclear antibody (OPAL) finding: - The patient was previously followed by a oven equipment repairer, Dr. Adame, for a very high positive OPAL test, suggesting a possible autoimmune condition. - Repeat testing about a year and a half after the initial test showed that the OPAL levels had multiplied, which was of concern to her oven equipment repairer. - The oven equipment repairer could not pinpoint a specific diagnosis but suggested she might develop lupus in the future, as basic lupus tests were negative at the time. - She has not seen the oven equipment repairer in a long time. Vitamin D deficiency: - The patient has a history of low vitam in D levels. - She tries to keep up with supplementat ion but believes her levels are probably low again. Suspected MTHFR gene mutation: - The patient has a significant family h istory of stroke; her maternal grandmother had a minor stroke and her mother had a major, disabling stroke. - Her mother was found to have an MTHFR gene mutation after having two blood clots in her brain. - The patient saw a photo optics technician about 5 -6 years ago to discuss this, but was told the gene is useless to test for as nothing can be done to prevent an adverse event. Suspected Endometriosis: - The patient believes she has endometri osis and is [facility]. - She reports being in pain frequently a nd has a history of either heavy or absent periods, depending on the oral contraceptive she is on. - She is not currently on control but plans to restart it. - The patient has declined a hysteroscop y in the past. - She has no plans of getting . Chest Pain: - The patient has experienced chest pain ever since having a Nexplanon implant, which she had removed after three months due to complications. - She was evaluated by a maintenance job titles at that time who determined the pain was not cardiac in origin, but likely musculoskeletal or hormonal. - A previous doctor suggested costochond ritis due to the nature of the pain. Past Medical History - Respiratory: History of asthma. - Rheumatologic: History of positive OPAL test. - Endocrine: History of vitamin D defici ency. - Gynecologic: History of suspected endo metriosis and irregular periods. Past use of Nexplanon implant, which was removed due to complications. - Musculoskeletal: History of chest pain , previously attributed to costochondritis. - Surgeries: No past surgeries. Review of Systems - Respiratory: Reports history of recurr ent respiratory problems and being advised to get tested for asthma. Denies other current respiratory symptoms. - Musculoskeletal: Reports chronic chest wall pain and frequent pelvic pain. Denies lower extremity edema. - Gynecological: Reports history of heav y or absent periods. Denies any STDs or STIs. - Neurological: Reports numbing and burn ing sensations in the past. Physical Exam General: Well developed, well nourished, in no acute distress. Appears stated age. Head: Normocephalic, atraumatic. Eyes: Pupils are equal, round and reactive to light and accommodation. Conjunctivae are clear. Lungs: Clear to auscultation bilaterally. No rales, rhonchi or wheeze noted. Good air flow in all low. Chest: Reproducible chest pain w palpation over L anterior chest Heart: Regular rate and rhythm. No murmurs, click, rubs or gallops are noted. Musculoskeletal: Joints are nontender, without swelling, redness, or effusions. Pulses: Peripheral pulses are equal and palpable bilaterally. Extremities: No clubbing, cyanosis nor edema is noted. Psych: Mood and affect appropriate. Results Pending Medical Decision Making The patient is a 25-year-old female establishing care with a complex medical history and difficulty obtaining past records. Her primary concerns a history of recurrent respiratory issues suspicious for asthma and a significant family history of stroke related to a maternal MTHFR mutation. She also has a history of a positive and rising OPAL, followed by a oven equipment repairer in the past, and chronic chest pain. Given the recurrent respiratory symptoms and chest pain, a pulmonology referral is more appropriate than simply ordering a PFT to evaluate for asthma and other potential etiologies. The history of a positive OPAL followed by Dr. Adame warrants a re-referral to that specific provider, as she is most likely to accept the patient back into her care given the difficulty of new rheumatology referrals. Baseline laboratory studies are necessary to establish care and investigate her ongoing concerns. This will include a general health panel as well as specific tests for MTHFR, OPAL, and vitamin D to address her specific historical and familial risk factors. The plan is to obtain these initial diagnostics and referrals, assist the patient in obtaining her old medical records, and then have her return for a full physical exam and review of results to formulate a more comprehensive care plan. Plan 1. Establishing Care - The patient presents to [facility]. - Will assist patient in obtaining past [place] [facility] [place] sign a release of records form. - Ordered baseline labs to be done today . - Instructed patient to sign up for the patient portal for communication and access to results. - Plan to follow up to review lab result s and perform a full physical exam. 2. Asthma And Chest Pain - The patient reports recurrent respirat ory problems and chronic chest pain. - Due to the combination of symptoms, a referral will be placed to Pulmonology at [facility] for a comprehensive evaluation, rather than just ordering a PFT in-office. - The patient is familiar with the refer red office. 3. Positive Opal / Rheumatologic Concerns - Patient has a history of a significant ly positive and rising OPAL, with previous evaluation by Dr. Sonia Adame. - A referral will be placed to Dr. Adame for re-evaluation, as it is most likely she will accept a former patient. - An OPAL test will be included in today' s lab order. 4. Family History Of Stroke / Mthfr - The patient has a strong family histor y of stroke, with her mother having an MTHFR gene mutation. - MTHFR gene testing will be ordered as part of the baseline labs. 5. Vitamin D Deficiency - The patient has a history of low vitam in D. - A vitamin D level will be checked with today's labs. Patient Instructions - You will need to go to the lab here in the office to have your blood drawn today before you leave. - Stop at the front office help to schedule you r next appointment, sign a medical records release form, and get your paperwork for today's visit. - You will receive phone calls to [facility] appointments with the lung specialist (Pulmonology) and the arthritis/autoimmune specialist (Rheumatology). - Please sign up for our patient portal, called [email or web address]. I am sending a password reset link to your email, which is active for 24 hours. This portal is how you should contact our office with any questions. - We will schedule you to come back to t office to go over your lab results and to have a complete physical exam. Consent The patient verbally agreed to the plan of care, including referrals to pulmonology and rheumatology, as well as baseline laboratory testing. Patient was informed and verbally consented to the use of an ambient scribe for clinic note documentation during this visit. Total time spent caring for the patient today was 45 minutes. This includes time spent before the visit reviewing the chart, time spent during the visit, and time spent after the visit on documentation, reviewing laboratory results, d iagnostic imaging, medications, performing a medically necessary evaluation, counseling on diagnoses, care coordination, ordering appropriate tests, ordering appropriate medications, review of tests performed by other providers, reporting test results with the patient, communication with other healthcare providers. 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 1. Little interest or pleasure in doing things: not at all 2. Feeling down, depressed, or hopeless: not at all 3. Trouble falling or staying asleep, or sleeping too much: not at all 4. Feeling tired or having little energy: not at all 5. Poor appetite or overeating: not at all 6. Feeling bad about yourself - or that you are a failure or have let yourself or your family down: not at all 7. Trouble concentrating on things, such as reading the newspaper or watching television: not at all 8. Moving or speaking so slowly that other people could have noticed. Or the opposite - being so fidgety or restless that you have been moving around a lot more than usual: not at all 9. Thoughts that you would be better off or of hurting yourself in some way: not at all Total score: 0 Depression Screening Interpretation: Negative Depression Screening Done: Yes 66771 - PHQ-9 Billing: Yes Source: Developed by Drs. Hayden Stallworth, Priti Diaz, Afshin Berry and colleagues, with an educational david from [employer]. Thrive Questionnaire Date Thrive assessed: 08/08/25 I am a: Patient What is your living situation today?: I have a steady place to live Within the past 12 months, did the food you bought not last and you didn't have the money to get more?: Never true Within the past 12 months, did you worry whether your food would run out before you got money to buy more?: Never true Do you have trouble paying for medicines?: No Do you have trouble getting transportation to medical appointments?: No Do you have trouble paying your heating and electricity bill?: No Do you have trouble taking care of your child, family member or friend?: No Do you have trouble with day-to-day activities such as bathing, preparing meals, shopping, managing finances, etc.?: No Are you currently unemployed and looking for a job?: No Are you interested in more education?: No Please select the resources that you would like help with: None Currently or been in a relationship where the following occur: No concerns reported THRIVE Score: 0 AUDIT C Alcohol Use Questionnaire (AUDIT-C) 1. How often do you have a drink containing alcohol?: Monthly or less 2. How many drinks containing alcohol do you have on a typical day when you are drinking?: 3 or 4 3. How often do you have six or more drinks on one occasion?: Less than monthly Total Score: 3 Score Reviewed/Action Taken: Yes LEA-7 AMB Questionnaire LEA-7 Date LEA - 7 assessed: 08/08/25 Feeling nervous, anxious, or on edge: 0 = Not at all Not being able to stop or control worryin = Not at all Worrying too much about different things: 1 = Several days Trouble relaxin = Not at all Being so restless that it is hard to sit still: 0 = Not at all Becoming easily annoyed or irritable: 1 = Several days Feeling afraid as if something awful might happen: 0 = Not at all Total LEA-7 score (0-4 normal; 5-9 mild; 10-14 moderate; 15-21 severe): 2 Source: Developed by Drs. Hayden Stallworth, Priti Diaz, Afshin Berry and colleagues, with an educational david from [employer]. LEA-7 Assessment Billing LEA-7 Assessment Tool: LEA-7 Assessment 99684 Physical exam (Primary Care) Vital Signs: Last Vital Signs Temp 98.1 F 08/08/25 10:52 Pulse 89 08/08/25 10:52 Resp 14 08/08/25 10:52 BP 92/74 08/08/25 10:52 Pulse Ox 98 08/08/25 10:52 Oxygen Delivery Method Room Air 08/08/25 10:52 BMI result Body Mass Index 19.4 Tobacco/Smoking Status: Tobacco use Status Tobacco use date assessed 08/08/25 08/08/25 10:57 Patient Tobacco Use Status Current everyday Tobacco ( 08/08/25 10:57 three times a year) e-Cigarette/Vaping Use Never Used 08/08/25 10:57 PHQ-9: PHQ-9 Score PHQ-9: Total score 0 08/08/25 10:57 Depression Screening Interpretation: Negative Currently or been in a relationship where the following occur: No concerns reported Coding Level of Care Code New Pt Level 4 (95841) Add On Problem Visit Only Diagnoses Encounter to establish care with new provider Z76.89 Mild intermittent asthma in adult without complication J45.20 Positive OPAL (antinuclear antibody) R76.89 Vitamin D deficiency E55.9 Family history of stroke Z82.3 Family history of MTHFR deficiency Z83.49 Shellfish allergy Z91.013 Menorrhagia with irregular cycle N92.1 Costochondritis M94.0 History of Papanicolaou smear of cervix Z92.89 Additional Codes PHQ-9 - 42360 - PHQ-9 Billing: Yes ([id number]) LEA-7 Assessment Billing - LEA-7 Assessment Tool: LEA-7 Assessment 01545 ([id number]) Assessment & Plan Assessment & Plan (1) Encounter to establish care with new provider: Code(s): Z76.89 - Persons encountering health services in other specified circumstances (2) Mild intermittent asthma in adult without complication: Code(s): J45.20 - Mild intermittent asthma, uncomplicated Category: Medical (3) Positive OPAL (antinuclear antibody): Code(s): R76.89 - Other specified abnormal immunological findings in serum Category: Medical (4) Vitamin D deficiency: Code(s): E55.9 - Vitamin D deficiency, unspecified Category: Medical (5) Family history of stroke: Comment: mom and mgm Code(s): Z82.3 - Family history of stroke Category: Medical (6) Family history of MTHFR deficiency: Comment: Mom Code(s): Z83.49 - Family history of other endocrine, nutritional and metabolic diseases Category: Medical (7) Shellfish allergy: Code(s): Z91.013 - Allergy to seafood Category: Medical (8) Menorrhagia with irregular cycle: Comment: [facility] Code(s): N92.1 - Excessive and frequent menstruation with irregular cycle Category: Medical (9) Costochondritis: Code(s): M94.0 - Chondrocostal junction syndrome [Tietze] Category: Medical (10) History of Papanicolaou smear of cervix: Onset Date: ~2024 Code(s): Z92.89 - Personal history of other medical treatment Category: Medical Plan . Orders: Orders Comprehensive Met. Panel Today E55.9 - Vitamin D deficiency, unspecified, N92.1 - Excessive and frequent menstruation with irregular cycle, R76.89 - Other specified abnormal immunological findings in serum, Z83.49 - Family history of other endocrine, nutritional and metabolic diseases Lipid Panel Today E55.9 - Vitamin D deficiency, unspecified, N92.1 - Excessive and frequent menstruation with irregular cycle, R76.89 - Other specified abnormal immunological findings in serum, Z83.49 - Family history of other endocrine, nutritional and metabolic diseases Microalbumin, Random (w Creat) Today E55.9 - Vitamin D deficiency, unspecified, N92.1 - Excessive and frequent menstruation with irregular cycle, R76.89 - Other specified abnormal immunological findings in serum, Z83.49 - Family history of other endocrine, nutritional and metabolic diseases IRON PROFILE Today E55.9 - Vitamin D deficiency, unspecified, N92.1 - Excessive and frequent menstruation with irregular cycle, R76.89 - Other specified abnormal immunological findings in serum, Z83.49 - Family history of other endocrine, nutritional and metabolic diseases TSH reflex Free T4 Today E55.9 - Vitamin D deficiency, unspecified, N92.1 - Excessive and frequent menstruation with irregular cycle, R76.89 - Other specified abnormal immunological findings in serum, Z83.49 - Family history of other endocrine, nutritional and metabolic diseases Vitamin B12 and Folate Today E55.9 - Vitamin D deficiency, unspecified, N92.1 - Excessive and frequent menstruation with irregular cycle, R76.89 - Other specified abnormal immunological findings in serum, Z83.49 - Family history of other endocrine, nutritional and metabolic diseases Vitamin D 25-OH Total Today E55.9 - Vitamin D deficiency, unspecified, N92.1 - Excessive and frequent menstruation with irregular cycle, R76.89 - Other speci fied abnormal immunological findings in serum, Z83.49 - Family history of other endocrine, nutritional and metabolic diseases Complete Blood Count no Diff Today E55.9 - Vitamin D deficiency, unspecified, N92.1 - Excessive and frequent menstruation with irregular cycle, R76.89 - Other specified abnormal immunological findings in serum, Z83.49 - Family history of other endocrine, nutritional and metabolic diseases Ferritin Today E55.9 - Vitamin D deficiency, unspecified, N92.1 - Excessive and frequent menstruation with irregular cycle, R76.89 - Other specified abnormal immunological findings in serum, Z83.49 - Family history of other endocrine, nutritional and metabolic diseases Hemoglobin A1c Today E55.9 - Vitamin D deficiency, unspecified, N92.1 - Excessive and frequent menstruation with irregular cycle, R76.89 - Other specified abnormal immunological findings in serum, Z83.49 - Family history of other endocrine, nutritional and metabolic diseases OPAL Reflex Titer and Pattern Today E55.9 - Vitamin D deficiency, unspecified, N92.1 - Excessive and frequent menstruation with irregular cycle, R76.89 - Other specified abnormal immunological findings in serum, Z83.49 - Family history of other endocrine, nutritional and metabolic diseases MTHFR DNA Mutation Analysis Today E55.9 - Vitamin D deficiency, unspecified, N92.1 - Excessive and frequent menstruation with irregular cycle, R76.89 - Other specified abnormal immunological findings in serum, Z83.49 - Family history of other endocrine, nutritional and metabolic diseases Referrals Rheumatology Referral E55.9 - Vitamin D deficiency, unspecified, R76.89 - Other specified abnormal immunological findings in serum Pulmonology Referral J45.20 - Mild intermittent asthma, uncomplicated, M94.0 - Chondrocostal junction syndrome [Tietze] Patient Instructions: Walk-In Care (Urgent Care): We Make it Easy Walk-in for urgent medical issues such as: ? Seasonal Allergies ? Insect Bites ? Cough ? Diarrhea ? Acute Asthma Attacks ? Back, Knee or Joint Pain ? Ear Infection ? Fever without a Rash ? Headaches ? Nausea ? [place] Eye, Rash or Skin Irritation ? Sore Throat ? Sports Physicals ? Vomiting Most insurances are accepted. Patients do not need to be part of the [facility] to seek care at the walk-in clinic. Locations [address] [place], [place] Open Tuesday through Tuesday 8am-5pm *Hours may vary due to staffing availability. To confirm Walk-In Care hours please call. [address] [place] [address] ? [phone] [facility] Walk-In Care in [place] provides services to ages 18 and over. Open Tuesday-Tuesday: 7 a.m. to 5 p.m. and Tuesday: 9 a.m. to 3 p.m.* *Hours may vary due to staffing availability. To confirm Walk-In Care hours in [place], please call [phone]. [address] [place] [address] ? [phone] [facility] Walk-In Care in [place] provides services to ages 12 and over. Open Tuesday-Tuesday: 8 a.m. to 5 p.m. Hours may vary due to staffing availability. To confirm Walk-In Care hours in [place], please call [phone]. LABORATORY SERVICES: [facility] Lab ? Primary Location [address] [place] [address] Tuesday through Tuesday 6:00 AM ? 5:00 PM Tuesday 7:00 AM ? 11:00 AM* [phone] The [facility] Lab is centrally located near the front entrance of the [facility] for easy outpatient access. Convenient parking is provided for outpatients. *Hours may vary due to staffing availability. To confirm Laboratory hours for any location, please call [phone]. Offsite Location For your convenience, we offer offsite laboratory draw stations at the following locations: [address] [place] [address] ? [address], [address] Tuesday through Tuesday 7:30 AM ? 1:00 PM* [phone] *Hours may vary due to staffing availability. To confirm Laboratory hours for any location, please call [phone]. [place] ? [address] Tuesday through Tuesday 6:00 AM ? 3:30 PM* Tuesday 6:30 AM ? 3 PM* [phone] *Hours may vary due to staffing availability. To confirm Laboratory hours for any location, please call [phone] [place] [address] Tuesday through Tuesday 7:30 AM ? 4:00 PM* [phone] *Hours may vary due to staffing availability. To confirm Laboratory hours for any location, please call [phone]. [address] [facility] Tuesday through 9:00 AM ? 4:00 PM* *Hours may vary due to staffing availability. To confirm Laboratory hours for any location, please call [phone]. Appointments are not necessary. Walk-ins are welcome. Like all the departments throughout the [facility], our Lab undergoes frequent reviews to ensure the quality and accuracy of test results, and our staff takes special pride in its status as a nationally accredited facility. Patient Portal: [facility] ONE PATIENT. ONE RECORD. BETTER CARE. [facility] has a fully integrated, cutting- edge mobile electronic health information system that has revolutionized the way we care for our patients and manage our organization. This system improves communication and coordination enabling us to provide safe, higher-quality care, and an overall positive experience for staff and patients. Our first priority, as always, is to deliver the highest quality care possible. The system is running in the background supporting that priority. This portal is for all [facility] services and practices. If you are experiencing any technical difficulties with enrolling or logging into the Patient Portal please complete the [facility] Patient Portal Technical Support Form. [facility] now offers a new secure on-line interactive tool for patients to review their health information ? ?Patient Portal. This interactive web portal will enable patients and their families to take an active role in their care by providing easy, secure access to their health information via the internet. The Patient Portal provides patients with instant access to their health information, including laboratory results, medications, allergies, demographic information, visit history, and more. In addition to managing their own care, parents and health care proxies with authorized consent will appreciate the ability to access the records of those individuals for whom they provide care. Please note: if you wish to gain access (Proxy) to another patient?s portal, you will be required to come to the Medical Records Department in person at [facility]. Both the patient giving proxy access and the proxy will need to provide photo identification and complete the appropriate authorization. The Patient Portal also allows track their appointments online. The [facility] Patient Portal also saves patients time by allowing them to submit updates to their demographic and contact information prior to their visits. Portal email notifications will also alert patients to any new activity on their portal, such as test results and new appointments. In order to initially enroll in the [facility] Patient Portal, you will need to enter s ome required information including the following: * your [facility] Medical Record number * your personal home email address * name * date of Please note: In order to enroll in the [facility] Patient Portal, we need to have your email address on file in your electronic medical record. ?The email address needs to be specific for one person (yourself) in order for your Portal enrollment to be successful. ?You can update your email address in person with our Registration staff when you are registering for a hospital visit. ?Otherwise, you will need to come to the Health Information Management (Medical Records) Department at [facility]. ?We are open from Tuesday ? Tuesday from 7:30 a.m. ? 4:30 p.m. ?You will be required to present a photo id. Once you have successfully enrolled in the Patient Portal, you will receive a one-time user id and password for the Portal, sent to your email address. ?This will allow you to log into the Patient Portal within 99 hrs and reset your own logon id and password, and define personal security questions. ?Once your permanent login and password have been set, you can log into the [facility] Patient Portal at any time via the blue button above or from the Portal Logon button on any page of the [facility] website. [facility] and [facility] encourage all of our patients to enroll in Patient Portal as it presents a valuable opportunity for patients and their families to actively participate in their care and stay healthy Welcome to [facility]. ?We look forward to working with you.
== END 2025-08-08 11:36 | disposition home or self-care (01) ==
LOC: HO.HMCFM 10:50
PROVIDERS: PCP Nurse Practitioner Family; Visit Provider Nurse Practitioner Family
DX: Z76.89 Persons encountering health services in other specified circumstances (principal); J45.20 Mild intermittent asthma, uncomplicated; R76.89 Other specified abnormal immunological findings in serum; E55.9 Vitamin D deficiency, unspecified; Z82.3 Family history of stroke; Z83.49 Family history of other endocrine, nutritional and metabolic diseases; Z91.013 Allergy to seafood; N92.1 Excessive and frequent menstruation with irregular cycle; M94.0 Chondrocostal junction syndrome [Tietze]; Z92.89 Personal history of other medical treatment